=== PATIENT | male | born 1995 | race Caucasian/White ===

== ENCOUNTER 2023-03-09 09:38 | Emergency (ER) | payer MEDICAID, OTHER ==
[2023-03-09] MEDS ORDERED: Gentamicin 0.3% Ophth Soln 5 ML Bottle EYELF ONE (09:46)
== END 2023-03-09 09:57 | disposition home or self-care (01) ==
LOC: DL.ED 09:38
DX: H10.022 Other mucopurulent conjunctivitis, left eye (principal)
CPT/HCPCS: 99282; 99283; A9270-GY